=== PATIENT | female | born 1985 | race Two or more races ===

== ENCOUNTER 2016-11-08 17:24 | Day surgery (SDC) | payer BC ==
[~2016-11-08] VITALS: Ht 167.6 cm; Wt 69.8 kg
[~2016-11-08 17:24] MED LIST: BREAST PUMP MC; FOLIC ACID0.8 MG PO; PRENATAL TABLE1 EAC3 PO
[2016-11-08 17:46] VITALS: BP 124/63
[2016-11-08 18:40] LABS: BASOPHIL COUNT 0.1 K/uL (0-0.1); EOSINOPHIL (%) 0.8 % (0-5); EOSINOPHIL COUNT 0.1 K/uL (0-0.3); HEMATOCRIT 41.8 % (36.0-46.0); IMMATURE GRANULOCYTE (%) 0.3 % (0.0-0.7); LYMPHOCYTE COUNT 3.6 K/uL (1.0-2.8); MCH 30.1 PG (29.0-34.0); MCV 91.1 FL (83-99); MEAN PLAT.VOLUME 11.3 uM^3 (9.5-12.4); MONOCYTE (%) 6.1 % (3-12); MONOCYTE COUNT 0.7 K/uL (0-0.8); NEUTROPHIL (%) 60.7 % (45-76); PLATELET COUNT 266 K/uL (156-360); RBC DIS.WIDTH-CV 12.8 % (11.8-14.6); RBC DIS.WIDTH-SD 42.1 % (39-53); RED BLOOD COUNT 4.59 M/uL (3.80-5.20); WHITE BLOOD COUNT 11.6 K/uL (4.1-10.2)
[2016-11-08] MEDS ORDERED: PERCOCET 5/31 TABLET PO (21:11)
[2016-11-08 22:29] VITALS: BP 128/69
[2016-11-09 00:31] VITALS: BP 118/65
[2016-11-09 03:58] VITALS: BP 120/68
[2016-11-09 06:56] LABS: EOSINOPHIL (%) 0 % (0-5); HEMATOCRIT 34.8 % (36.0-46.0); IMMATURE GRANULOCYTE (%) 0.4 % (0.0-0.7); IMMATURE GRANULOCYTE COUNT 0.1 K/uL; LYMPHOCYTE COUNT 1.3 K/uL (1.0-2.8); MCH 31.3 PG (29.0-34.0); MCHC 34.5 G/DL (30.0-36.0); MCV 90.6 FL (83-99); MEAN PLAT.VOLUME 11.5 uM^3 (9.5-12.4); MONOCYTE (%) 2.2 % (3-12); MONOCYTE COUNT 0.3 K/uL (0-0.8); NEUTROPHIL (%) 88.1 % (45-76); PLATELET COUNT 224 K/uL (156-360); RED BLOOD COUNT 3.84 M/uL (3.80-5.20); WHITE BLOOD COUNT 13.6 K/uL (4.1-10.2)
[2016-11-09 07:20] VITALS: BP 118/59
[2016-11-09 07:40] VITALS: BP 124/65
[2016-11-09] MEDS ORDERED: ENDOCET 5-3251 EACH PO (07:56)
[2016-11-09] MEDS ORDERED: IBUPROFEN800 MG PO ×2 (07:59)
== END 2016-11-09 09:33 | disposition home or self-care (01) ==
LOC: SDC 17:24 → 2SOUTH 21:00 → 2EAST 21:00 → 2SOUTH 21:00 → ENRESERV 21:14 → 2EAST 22:21
PROVIDERS: Obstetrics & Gynecology
DX: O00.101 Right tubal pregnancy without intrauterine pregnancy (principal)
CPT/HCPCS: 85025; 86850; 86900; 86901; 88305; G0378; J0330; J0690; J1170; J1200; J1885; J2250; J3010; J7120; S0020

== ENCOUNTER 2017-03-16 22:46 | Day surgery (SDC) | payer BC ==
[~2017-03-16] VITALS: Ht 167.6 cm; Wt 66.4 kg
[~2017-03-16 22:46] MED LIST changes: +ENDOCET 5-3251 EACH PO; +IBUPROFEN800 MG PO; +PERCOCET 5/31 TABLET PO
[2017-03-17 00:36] LABS: APPEARANCE SL.HAZY ((CLEAR)); BILIRUBIN NEGATIVE; BLOOD NEGATIVE; COLOR YELLOW ((YELLOW)); GLUCOSE (STRIP) NEGATIVE; KETONES 20; LEUKOCYTES LARGE; NITRITE NEGATIVE; PROTEIN (STRIP) 30; SPECIFIC GRAVITY 1.027 (1.000-1.030); UROBILINOGEN 0.2 MG/DL (0.2-1.0)
[2017-03-17 00:47] LABS: HEMATOCRIT 39.6 % (36.0-46.0); HEMOGLOBIN 13.3 G/DL (11.9-15.5); MCH 30.1 PG (29.0-34.0); MCHC 33.6 G/DL (30.0-36.0); MCV 89.6 FL (83-99); RBC DIS.WIDTH-CV 12.7 % (11.8-14.6); RBC DIS.WIDTH-SD 41.7 % (39-53); RED BLOOD COUNT 4.42 M/uL (3.80-5.20)
[2017-03-17 00:49] LABS: BACTERIA RARE /HPF; EPITHELIAL CELLS 3+ /HPF; MUCUS TRACE /LPF
[2017-03-17 00:58] LABS: ALBUMIN 4.6 g/dL (3.2-4.8); CHLORIDE 104 mEq/L (99-109); POTASSIUM 3.9 mEq/L (3.7-5.4); SODIUM 138 mEq/L (136-147)
[2017-03-17 01:00] LABS: GLUCOSE 125 mg/dL (70-99); TOTAL PROTEIN 8.8 g/dL (6.4-8.3)
[2017-03-17 01:02] LABS: TOTAL BILIRUBIN 0.4 mg/dL (0.0-1.0)
[2017-03-17 01:04] LABS: ALKALINE PHOSPHATASE 52 IU/L (3-129); GFR ESTIMATE (CALCULATED) > 59 mL/min/
[2017-03-17 01:05] LABS: UREA NITROGEN (BUN) 11 mg/dL (9-23)
[2017-03-17 01:06] LABS: AST (GOT) 19 IU/L (2-34)
[2017-03-17 01:07] LABS: ALT (GPT) 15 IU/L (3-49); LIPASE 18 U/L (1.0-51.0)
[2017-03-17 01:15] LABS: QUANTITATIVE HCG < 4.0 MIU/ML
[2017-03-17 02:02] LABS: PLATELET COUNT 281 K/uL (156-360)
[2017-03-17] MEDS ORDERED: MULTIVITAMIN1 EAC2 PO (09:27)
[2017-03-17] MEDS ORDERED: HYDROCODON-ACE1 EAC7 PO (12:36)
[2017-03-17 14:40] VITALS: BP 110/56
[2017-03-17 15:38] VITALS: BP 116/59
== END 2017-03-17 15:45 | disposition home or self-care (01) ==
LOC: EME 22:46 → SDC 03-17 10:51
PROVIDERS: Physician Assistant
PROC: 0DTJ4ZZ Resection of Appendix, Percutaneous Endoscopic Approach (ICD-10-PCS; principal; 2017-03-17)
DX: K35.80 Unspecified acute appendicitis (principal); Z88.5 Allergy status to narcotic agent
CPT/HCPCS: 74177; 80053; 81003; 83690; 84702; 85027; 88304; 99281; 99285; J0330; J1100; J1170; J1885; J2250; J2405; J2710; J3010; J7030; S0074